=== PATIENT | male | born 1970 | race Caucasian/White ===

== ENCOUNTER → 2021-03-25 12:05 | Outpatient (CLI) | payer SELFPAY ==
--- NOTE | ~2021-03-25 | MR_ITS ---
EXAMINATION: MR lumbar spine wo con EXAM DATE: 03/25/2021 12:59 INDICATION: Radiculopathy, lumbar region radiculopathy. TECHNIQUE: Multi-sequential, multiplanar MR images of the lumbar spine were obtained without contrast . Sagittal T1, T2, T2 fat saturation images. Axial T2 weighted images. There is no prior study for comparison. FINDINGS: The vertebral bodies are aligned in the AP dimension. There is mild disc disease L3-4 and L 4-5. The conus medullaris terminates at the T12-L1 level and has normal signal intensity and morpholo gy. There are no suspicious marrow signal abnormalities. There is partially exophytic right renal lesion posterior medially measuring about 1.3 cm, could be a cyst but indeterminate on this study. Level by level evaluation: T12-L1: Disc does not extend beyond the endplate margin. Facet arthropathy: Mild. Neural foraminal stenosis: No stenosis. Central canal stenosis: No stenosis. L1-L2: Disc does not extend beyond the endplate margin. Facet arthropathy: Mild. Neural foraminal stenosis: No stenosis. Central canal stenosis: No stenosis. L2-L3: Disc does not extend beyond the endplate margin. Facet arthropathy: Mild to moderate. Neural foraminal stenosis: No stenosis. Central canal stenosis: No stenosis. L3-L4: There is a mild diffuse disc bulge. Facet arthropathy: Mild to moderate. Neural foraminal stenosis: No stenosis. Central canal stenosis: No stenosis. L4-L5: There is a moderate diffuse disc bulge. Facet arthropathy: Moderate to severe . Ligamentum flavum enlargement. Neural foraminal stenosis: Mild to moderate left, mild right. Central canal stenosis: Mild to moderate. L5-S1: There is a mild diffuse disc bulge. Facet arthropathy: Mild. Neural foraminal stenosis: Mild left. Central canal stenosis: No stenosis. IMPRESSION: 1. L4-5 moderate to severe facet arthropathy. 2. Otherwise overall mild to moderate lumbar spondylosis. 3. Right renal lesion statistically most likely cyst but not definitively fluid signal intensity on this exam. Consider ultrasound. Reviewed, dictated and finalized at location B. IMPRESSION: 1. L4-5 moderate to severe facet arthropathy. 2. Otherwise overall mild to moderate lumbar spondylosis. 3. Right renal lesion statistically most likely cyst but not definitively flui d signal intensity on this exam. Consider ultrasound.
== END ==
DX: M47.26 Other spondylosis with radiculopathy, lumbar region (principal)
CPT/HCPCS: 72148